=== PATIENT | male | born 1995 | race Caucasian/White ===

== ENCOUNTER 2017-09-30 12:26 | Emergency (ER) | payer OTHER ==
[~2017-09-30] VITALS: Ht 406.4 cm; Wt 55.3 kg
[2017-09-30 12:31] VITALS: BP 139/76; Ht 406.4 cm; Wt 55.3 kg
[2017-09-30 13:49] LABS: microscopic required? NO
[2017-09-30 14:06] LABS: UA SPECIFIC GRAVITY 1.015 (1.005-1.035); urine erythrocyte NEGATIVE (NEGATIVE)
== END 2017-09-30 15:13 | disposition home or self-care (01) ==
LOC: ED 12:26
PROVIDERS: Emergency Medicine
DX: I86.1 Scrotal varices (principal); Z91.013 Allergy to seafood
CPT/HCPCS: 87491; 87591; Q0092